=== PATIENT | female | born 1945 | race Caucasian/White ===

== ENCOUNTER → 2019-07-10 | Outpatient (CLI) | payer MEDICARE, OTHER | END | disposition home or self-care (01) | LOC: LAB SHORT 11:31 → LAB EV 11:31 | DX: K12.0 Recurrent oral aphthae (principal) | CPT/HCPCS: 87529 ==

== ENCOUNTER → 2021-01-18 | Outpatient (CLI) | payer MEDICARE, OTHER | END | disposition home or self-care (01) | LOC: LAB 13:51 → LAB SHORT 13:51 | DX: B37.0 Candidal stomatitis (principal) | CPT/HCPCS: 87070; 87205 ==

== ENCOUNTER 2022-11-24 12:55 | Inpatient (IN) | payer MEDICARE, OTHER ==
[~2022-11-24] VITALS: Ht 165.1 cm; Wt 135.0 kg
[2022-11-24 18:27] LABS: Anti-Xa UFH, PHA Monitoring <0.10 IU/mL; International Normalized Ratio 1.04; Prothrombin Time Results 10.9 Sec (9.7-11.5)
--- NOTE | 2022-11-24 18:28 | NUR ---
SHIFT SUMMARY PT HAS BEEN RESTING IN ROOM SINCE ADMISSION. PT HAS BEEN PLEASANT AND COOPERATIVE WITH CARE. PT ARRIVED ON DILTIAZEM GTT AT 5ML/HR WITH A HEART RATE OF 120+. RHYTHM OF ATRIAL FIBRILLATION WAS CONFIRMED ON TELEMETRY AND DILTIAZEM WAS TITRATED TO 10ML/HR. SBP HAS REMAINED STABLE >100. PT DENIED ANY PAIN/DISCOMFORT OR CHEST PAIN. PT'S SPOUSE ARRIVED WITH THE PT AND REMAINED AT BEDSIDE.
[2022-11-25 00:51] LABS: BASOPHILS PERCENT AUTO 1 % (0-2); EOSINOPHILS ABSOLUTE AUTO 0.43 K/mm3 (0.00-0.68); EOSINOPHILS PERCENT AUTO 4 % (0-6); Hematocrit 38.1 % (33.0-51.0); Hemoglobin 12.5 g/dL (11.5-16.0); IMMATURE GRAN ABSOLUTE AUTO 0.02 K/mm3 (0.00-0.10); IMMATURE GRAN PERCENT AUTO 0 % (0-1); LYMPHOCYTES ABSOLUTE AUTO 2.59 K/mm3 (0.84-5.20); LYMPHOCYTES PERCENT AUTO 26 % (21-46); MONOCYTES ABSOLUTE AUTO 0.77 K/mm3 (0.16-1.47); MONOCYTES PERCENT AUTO 8 % (4-13); Mean Corpuscular HGB 28.9 pg (26.0-34.0); Mean Corpuscular HGB Conc 32.8 g/dL (31.5-36.5); Mean Corpuscular Volume 88 fL (80-100); Mean Platelet Volume 10.5 fL (9.1-12.4); NEUTROPHILS ABSOLUTE AUTO 6.03 K/mm3 (1.96-9.15); NEUTROPHILS PERCENT AUTO 61 % (41-73); Platelet Count 227 K/mm3 (150-400); RDW Coefficient Variation 13.6 % (11.7-14.2); RDW Standard Deviation 44.1 fL (35.1-46.3); Red Blood Cell Count 4.32 M/mm3 (3.80-5.20); White Blood Cell Count 9.94 K/mm3 (4.00-11.30)
[2022-11-25 01:10] LABS: Albumin, Blood 3.2 g/dL (3.4-5.0); Bilirubin, Total 0.7 mg/dL (0.1-1.0); Bun/Creatinine Ratio 21.6 (12.0-20.0); Calcium, Blood 9.7 mg/dL (8.5-10.1); Creatinine, Blood 1.11 mg/dL (0.40-1.00); Globulin, Blood 3.2 g/dL (2.2-4.0); Potassium, Blood 3.9 mmol/L (3.5-5.5); Total Protein, Blood 6.4 g/dL (6.4-8.2)
--- NOTE | 2022-11-25 04:42 | NUR ---
SHIFT SUMMARY: PT ALERT AND ORIENTED X4, ABLE TO FOLLOW COMMANDS AND MAKE NEEDS KNOWN. BP STABLE, HR REMAINS AFIB 90'S-100'S, AFEBRILE, SATURATIONS >96% ON ROOM AIR. PT DYSPNEIC WITH EXCERTION. GENERALIZED EDEMA NOTED. PT STATES THIS IS BASELINE. CARDIZEM GTT IN @5MG/HR, HEPARIN GTT @14 UNITS/HR. NO COMPLAINTS OF CP/PRESSURE. POWERGLIDE IN [place], DRAWS AND FLUSHES. MEDICATED X1 FOR PAIN. PT SBA TO BEDSIDE CAMMODE, CALLS APPROPRIATELY. PURE WICK IN PLACE. BED IN LOW, CALL LIGHT IN REACH, WILL REPORT TO ONCOMING RN.
--- NOTE | 2022-11-25 10:20 | NUR ---
UPDATE PT A-FIB WITH A CONTROLLED RATE RANGING 80-90'S. METOPROLOL PO MED GIVEN PER EMAR. DILTIAZEM PUT IN STANDBY AT 1010.
--- NOTE | 2022-11-25 13:13 | NUR ---
"Spiritual Care | Pt. request Pt. is awake in bed and welcomes my visit. Pt. is pleasant and rapport is established quickly. Pt. displays evidence of engagement and awareness, as well as a focus on her PT. Facilitate a life review. Educate Pt. on roles of spiritual care. Prayed for Pt. During prayer Spouse arrived. Rapport was continued with the spouse. Both Pt. and Spouse verbalize gratitude for the spiritual care visit."
--- NOTE | 2022-11-25 15:38 | NUR ---
Echocardiogram completed.
--- NOTE | 2022-11-25 17:25 | NUR ---
SHIFT SUMMARY PT A/OX4 AND COOPERATIVE OF CARE. PT A-FIB ALL SHIFT WITH CONTROLLED RATES RANGING MOSTLY 80-90'S. DILT GTT STOPPED AROUND 1010. PT HR HAD FEW SPIKES TO 130-140'S BRIEFLY WITH EXERTION. OTHER VSS THROUGHOUT SHIFT. NO REPORT OF CHEST PAIN/PRESSURE THORUGHOUT SHIFT. PT REPORTED SOB WITH EXERTION THIS MORNING, NOT REPORTING SOB AT THIS TIME. PT HAS BEEN UP TO BATHROOM A COUPLE OF TIMES DURING SHIFT, TOLERATED WELL. HEPARIN GTT RUNNING PER EMAR. PUREWICK IN PLACE, YELOOW/RABIA URINE. PT REPORTING NECK PAIN AND A HEADACHE DURING SHIFT, TREATED PER EMAR.
--- NOTE | 2022-11-25 23:00 | NUR ---
TRANSFER REPORT GIVEN TO MEDICAL FLOOR NURSE AND PATIENT TRANSFERRED TO ROOM 358. PATIENT SENT WITH ALL BELONGINGS, CHART AND MEDICATIONS. PATIENT ALERT AND ORIENTED, ABLE TO MAKE NEEDS KNOWN TO STAFF. VSS, PATIENT REMAINED ON RA WITH 02 SAT >90%. HOME CPAP AT BEDSIDE. HR REMAINED AFIB 100s-120s. PATIENT STANDBY ASSIST IN THE ROOM. NO SIGNIFICANT CHANGES.
--- NOTE | 2022-11-26 03:20 | NUR ---
PCU TRANSFER TO RM 358. ALERT AND ORIENTED X4. STANDBY ASSIST TO BATHROOM. DENIES PAIN. WEARS CPAP AT NIGHT. ON HEPARIN DRIP, AT 14UNITS/HR, VERIFIED WITH TEODORA PAK.
[2022-11-26 05:12] LABS: BASOPHILS PERCENT AUTO 1 % (0-2); EOSINOPHILS ABSOLUTE AUTO 0.43 K/mm3 (0.00-0.68); EOSINOPHILS PERCENT AUTO 5 % (0-6); Hematocrit 37.9 % (33.0-51.0); Hemoglobin 12.6 g/dL (11.5-16.0); IMMATURE GRAN ABSOLUTE AUTO 0.02 K/mm3 (0.00-0.10); IMMATURE GRAN PERCENT AUTO 0 % (0-1); LYMPHOCYTES ABSOLUTE AUTO 2.45 K/mm3 (0.84-5.20); LYMPHOCYTES PERCENT AUTO 26 % (21-46); MONOCYTES ABSOLUTE AUTO 0.88 K/mm3 (0.16-1.47); MONOCYTES PERCENT AUTO 9 % (4-13); Mean Corpuscular HGB 29.5 pg (26.0-34.0); Mean Corpuscular HGB Conc 33.2 g/dL (31.5-36.5); Mean Corpuscular Volume 89 fL (80-100); Mean Platelet Volume 10.9 fL (9.1-12.4); NEUTROPHILS PERCENT AUTO 60 % (41-73); Platelet Count 198 K/mm3 (150-400); RDW Coefficient Variation 13.4 % (11.7-14.2); RDW Standard Deviation 43.8 fL (35.1-46.3); Red Blood Cell Count 4.27 M/mm3 (3.80-5.20); White Blood Cell Count 9.58 K/mm3 (4.00-11.30)
[2022-11-26 06:14] LABS: Bun/Creatinine Ratio 23.6 (12.0-20.0); Calcium, Blood 9.5 mg/dL (8.5-10.1); Creatinine, Blood 1.06 mg/dL (0.40-1.00); Potassium, Blood 3.8 mmol/L (3.5-5.5)
[2022-11-26] MEDS ORDERED: PANT40 PO (16:03)
[2022-11-26] MEDS ORDERED: DULO60 PO (16:03)
[2022-11-26] MEDS ORDERED: PRED FORTE5 ML RIGHTEYE (16:05)
[2022-11-26] MEDS ORDERED: LOSARTAN POTAS100 M1 PO (16:06)
[2022-11-26] MEDS ORDERED: TRAM50 PO (16:06)
[2022-11-26] MEDS ORDERED: METO50ER PO (16:07)
[2022-11-26] MEDS ORDERED: ESCI10 PO (16:07)
[2022-11-26] MEDS ORDERED: ELIQUIS5 M2 PO (16:08)
--- NOTE | 2022-11-26 16:35 | NUR ---
NOTE/DISCHARGE SUMMARY: PATIENT A&OX4. CALM, PLEASANT AND COOPERATIVE c CARE. USES CALL LIGHT AND ABLE TO ADVOCATE FOR HER NEEDS. PATIENT DENIES CP/CHEST PRESSURE. ON TELE, AFIB IN THE 100'S BPM c BBB, PER SHANK STAPLER INGRID GARCIA. PATIENT ON RA c SPO2 ABOVE 93%. DENIES SOB, N/V AND GENERALIZED PAIN. PATIENT AMBULATES TO BATHROOM AND BACK IN BED c SBA. VITAL SIGNS REVIEWED. POWERGLIDE TO NIKKO DC'D. AT AROUND [address] c DR[address] KELLER TO VERIFY ORDER REGARDING HH PT/OT UPON DISCHARGE. NO RECOMMENDATION FROM PT/OT FOR HH. RECEIVED ORDER FROM DR. KELLER TO CANCELLED ORDER. PATIENT DISCHARGE HOME. DISCHARGE INSTRUCTION PACKET GIVEN TO PATIENT. EDUCATE PATIENT REGARDING ADMITTING DX, S/S, TX, AND NEW PRESCRIBED MEDICATIONS. PATIENT STATED UNDERSTANDING AND NO FURTHER QUESTIONS. RX WAS FAXED TO PATIENT PREFERRED PHARMACY ([facility]). ALL PATIENT PERSONAL BELONGINGS WERE SENT HOME WITH THE PATIENT. PATIENT LEFT THE ROOM AT AROUND 1635, TRANSPORTED VIA WHEELCHAIR BY [employer]AMP SE[employer]ER STAFF ALMA CARDONA TO PATIENT SPOUSE PRIVATE VEHICLE.
== END 2022-11-26 16:50 | disposition home health service (06) | DRG 291 ==
LOC: ER 12:55 → PCU 14:38 → MEDS 14:38 → PCU 16:39 → MEDS 11-25 23:07
PROVIDERS: Family Medicine; ADMIT Hospitalist
DX: I11.0 Hypertensive heart disease with heart failure (principal); I50.31 Acute diastolic (congestive) heart failure; J91.8 Pleural effusion in other conditions classified elsewhere; Z68.43 Body mass index [BMI] 50.0-59.9, adult; I48.91 Unspecified atrial fibrillation; J45.909 Unspecified asthma, uncomplicated; M54.9 Dorsalgia, unspecified; G89.29 Other chronic pain; M19.90 Unspecified osteoarthritis, unspecified site; E11.40 Type 2 diabetes mellitus with diabetic neuropathy, unspecified; E66.01 Morbid (severe) obesity due to excess calories; J20.9 Acute bronchitis, unspecified; K21.9 Gastro-esophageal reflux disease without esophagitis; F41.9 Anxiety disorder, unspecified; F32.A Depression, unspecified; E78.5 Hyperlipidemia, unspecified; Z88.0 Allergy status to penicillin; Z88.1 Allergy status to other antibiotic agents; Z79.899 Other long term (current) drug therapy
CPT/HCPCS: 36415; 71045; 71046; 71260; 80048; 80053; 83735; 83880; 84100; 84484; 85025; 85379; 85520; 85610; 85730; 93005; 93010; 93306; 94640; 94660; 94664; 94760; 94762; 96365-59; 96376-59; 97110; 97116; 97162; 97165; 97530; 97535; 99285-25; A9270; C1751; J0696; J1644; J1940; Q9967

== ENCOUNTER → 2022-11-24 | Outpatient (CLI) | payer MEDICARE, OTHER ==
[~2022-11-24] MED LIST: DULO60 PO; ELIQUIS5 M2 PO; ESCI10 PO; LOSARTAN POTAS100 M1 PO; METO50ER PO; PANT40 PO; PRED FORTE5 ML RIGHTEYE; TRAM50 PO
[2022-11-24 11:09] LABS: BASOPHILS PERCENT AUTO 1 % (0-2); EOSINOPHILS PERCENT AUTO 3 % (0-6); Hematocrit 40.8 % (33.0-51.0); Hemoglobin 13.4 g/dL (11.5-16.0); IMMATURE GRAN ABSOLUTE AUTO 0.04 K/mm3 (0.00-0.10); IMMATURE GRAN PERCENT AUTO 0 % (0-1); LYMPHOCYTES ABSOLUTE AUTO 1.78 K/mm3 (0.84-5.20); LYMPHOCYTES PERCENT AUTO 19 % (21-46); MONOCYTES ABSOLUTE AUTO 0.66 K/mm3 (0.16-1.47); MONOCYTES PERCENT AUTO 7 % (4-13); Mean Corpuscular HGB 29.5 pg (26.0-34.0); Mean Corpuscular HGB Conc 32.8 g/dL (31.5-36.5); Mean Corpuscular Volume 90 fL (80-100); Mean Platelet Volume 10.7 fL (9.1-12.4); NEUTROPHILS ABSOLUTE AUTO 6.76 K/mm3 (1.96-9.15); NEUTROPHILS PERCENT AUTO 70 % (41-73); Platelet Count 230 K/mm3 (150-400); RDW Coefficient Variation 13.8 % (11.7-14.2); RDW Standard Deviation 45.4 fL (35.1-46.3); Red Blood Cell Count 4.55 M/mm3 (3.80-5.20); White Blood Cell Count 9.64 K/mm3 (4.00-11.30)
[2022-11-24 11:19] LABS: Calcium, Blood 9.7 mg/dL (8.5-10.1); Potassium, Blood 4.2 mmol/L (3.5-5.5)
== END | disposition home or self-care (01) ==
LOC: LAB 11:01 → LAB SHORT 11:01
PROVIDERS: Physician Assistant Surgical
DX: R06.09 Other forms of dyspnea (principal)
CPT/HCPCS: 80048; 84484; 85025; 85379

== ENCOUNTER → 2025-09-26 | Outpatient (CLI) | payer MEDICARE, OTHER ==
[~2025-09-26] MED LIST changes: +Amiodarone HCl200 MG PO; +TRELEGY ELLIPT1 EAC1 INH
[2025-09-26 14:14] LABS: BASOPHILS ABSOLUTE AUTO 0.06 K/mm3 (0.00-0.23); BASOPHILS PERCENT AUTO 1 % (0-2); EOSINOPHILS ABSOLUTE AUTO 0.11 K/mm3 (0.00-0.68); EOSINOPHILS PERCENT AUTO 1 % (0-6); Hematocrit 49.9 % (33.0-51.0); Hemoglobin 17.1 g/dL (11.5-16.0); IMMATURE GRAN ABSOLUTE AUTO 0.03 K/mm3 (0.00-0.10); IMMATURE GRAN PERCENT AUTO 0 % (0-1); LYMPHOCYTES ABSOLUTE AUTO 1.55 K/mm3 (0.84-5.20); LYMPHOCYTES PERCENT AUTO 15 % (21-46); MONOCYTES ABSOLUTE AUTO 0.76 K/mm3 (0.16-1.47); MONOCYTES PERCENT AUTO 8 % (4-13); Mean Corpuscular HGB Conc 34.3 g/dL (31.5-36.5); Mean Corpuscular Volume 100 fL (80-100); NEUTROPHILS ABSOLUTE AUTO 7.62 K/mm3 (1.96-9.15); NEUTROPHILS PERCENT AUTO 75 % (41-73); NRBC ABSOLUTE 0.00 K/mm3 (0.00-0.02); NRBC Auto 0.0 /100 WBC (0.0-0.2); Platelet Count 201 K/mm3 (150-400); RDW Coefficient Variation 13.9 % (11.7-14.2); RDW Standard Deviation 51.4 fL (35.1-46.3)
[2025-09-26 14:24] LABS: Alanine Aminotransfer (ALT/SGP 62.0 U/L (12-78); Albumin, Blood 3.5 g/dL (3.4-5.0); Albumin/Globulin Ratio 0.9 (0.8-1.8); Anion Gap 14.0 mmol/L (3-11); Aspartate Aminotrans (AST/SGOT 40.0 U/L (12-37); Bilirubin, Total 1.0 mg/dL (0.1-1.0); Blood Urea Nitrogen 32.0 mg/dL (8-24); CO2, Blood 24.0 mmol/L (21-32); Calcium, Blood 9.8 mg/dL (8.5-10.1); Chloride, Blood 103.0 mmol/L (98-108); Creatinine, Blood 1.28 mg/dL (0.40-1.00); Globulin, Blood 3.7 g/dL (2.2-4.0); Glucose, Blood 113.0 mg/dL (70-99); Potassium, Blood 4.3 mmol/L (3.5-5.5); Sodium, Blood 137.0 mmol/L (136-145); Total Protein, Blood 7.2 g/dL (6.4-8.2)
== END ==
LOC: LAB SHORT 14:02 → LAB 14:02
PROVIDERS: Student in an Organized Health Care Education/Training Program
DX: I48.91 Unspecified atrial fibrillation (principal)
CPT/HCPCS: 80053; 83880; 84484; 85025

== ENCOUNTER 2025-10-23 07:31 | Day surgery (SDC) | payer MEDICARE, OTHER ==
[2025-10-23] VITALS (18 sets, daily range): BP systolic 94–125; BP diastolic 59–86
[~2025-10-23] VITALS: Ht 165.1 cm; Wt 99.0 kg
[2025-10-23] MEDS ORDERED: NS 1,000 ML IV ONE (08:44)
[2025-10-23] MEDS ORDERED: Flonase 0.05% N16 GM (08:46)
[2025-10-23] MEDS ORDERED: LASIX40 MG PO (08:46)
[2025-10-23] MEDS ORDERED: POTA10T PO (08:47)
[2025-10-23] MEDS ORDERED: JARDIANCE10 MG PO (08:47)
[2025-10-23] MEDS ORDERED: TERB250 PO (08:48)
[2025-10-23] MEDS ORDERED: SPIR25 PO (08:48)
[2025-10-23] MEDS ORDERED: VALA500 PO (08:49)
[2025-10-23] MEDS ORDERED: Naloxone HCl 0.4MG / ML 1ML Vial ONE (09:03)
[2025-10-23] MEDS ORDERED: Flumazenil 0.1 MG / ML 5ML Vial ONE (09:03)
[2025-10-23] MEDS ORDERED: Midazolam HCl 1MG / ML 2ML Vial ONE (09:03)
[2025-10-23] MEDS ORDERED: FentaNYL Citrate 50 MCG/ML 2 ML Injection ONE (09:04)
--- NOTE | 2025-10-23 10:35 | NUR ---
PT AWAKE AND CONVERSING APPROPRIATELY, DENIES PAIN POST PROCEDURE, VSS ON RA. PT'S SPOUSE AT BEDSIDE, ATTENTIVE.
--- NOTE | 2025-10-23 11:08 | NUR ---
PT DRESSED SELF WITHOUT ISSUE, IV REMOVED-CANNULA INTACT. PT AND SPOUSE RECEIVED DISCHARGE INSTRUCTIONS, MED LIST AND AFTER CARE INSTRUCTIONS; VERBALIZED GOOD UNDERSTANDING. PT LEFT FACILITY VIA W/C, CONDITION STABLE.
== END 2025-10-23 23:00 | disposition home or self-care (01) ==
LOC: MHTC 07:31
DX: I48.19 Other persistent atrial fibrillation (principal); I44.0 Atrioventricular block, first degree; R00.1 Bradycardia, unspecified; I44.7 Left bundle-branch block, unspecified; I13.0 Hypertensive heart and chronic kidney disease with heart failure and stage 1 through stage 4 chronic kidney disease, or unspecified chronic kidney disease; N18.9 Chronic kidney disease, unspecified; I50.20 Unspecified systolic (congestive) heart failure; I42.8 Other cardiomyopathies; E78.5 Hyperlipidemia, unspecified; G47.33 Obstructive sleep apnea (adult) (pediatric); M19.90 Unspecified osteoarthritis, unspecified site; G89.29 Other chronic pain; M54.9 Dorsalgia, unspecified; K21.9 Gastro-esophageal reflux disease without esophagitis; Z79.01 Long term (current) use of anticoagulants; Z79.899 Other long term (current) drug therapy; Z88.0 Allergy status to penicillin; Z88.1 Allergy status to other antibiotic agents
CPT/HCPCS: 92960; 93005; 93010; 99152; J2250; J2312; J3010; J7030